=== PATIENT | female | born 1980 | race Caucasian/White ===

== ENCOUNTER 2017-08-23 15:37 | Emergency (ER) | payer OTHER ==
[~2017-08-23] VITALS: Ht 162.6 cm; Wt 118.2 kg
[~2017-08-23 15:37] MED LIST: BCPILLS PO
[2017-08-23 15:43] VITALS: TEMP 37; Ht 162.6 cm; Wt 118.2 kg
[2017-08-23] MEDS ORDERED: SODIUM CHLORIDE 0.9% 1000ML 1,000 ML IV STA (16:16)
[2017-08-23] MEDS ORDERED: ONDANSETRON INJ 2 MG/ML 2 ML VIAL IV STA (16:16)
[2017-08-23 17:13] LABS: BASO % 0.1 %; BASO ABS # 0.02 K/uL (0-0.2); COMPLETE YES; EOS % 0.6 %; IG% 0.2 %; LYMPH ABS # 4.06 K/uL (1.2-3.4); MEAN CELL VOLUME 88.6 fL (80-100); MEAN CORPUSCULAR HEMOGLOBIN 30.6 pg (25-34); MEAN CORPUSCULAR HGB CONC 34.6 g/dl (32-36); MEAN PLATELET VOLUME 10.2 fL (7.4-10.4); MONO % 4.4 %; NEUT % 69.7 %; PLATELET COUNT 257 K/uL (130-400); RED BLOOD COUNT 5.19 M/uL (4.2-5.4); WHITE BLOOD COUNT 16.22 K/uL (4.8-10.8)
[2017-08-23 17:17] LABS: URINE APPEARANCE CLOUDY (CLEAR); URINE BILIRUBIN NEG (NEG); URINE COLOR YELLOW; URINE EPITHELIAL CELL AUTO >30 /lpf (0-5); URINE NITRITE NEG (NEG); URINE SPECIFIC GRAVITY 1.028 (1.000-1.030); UROBILINOGEN NEG (NEG); ZZUR CULT IF INDIC CLEAN CATCH YES
[2017-08-23 17:22] LABS: MANUAL MICROSCOPIC REQUIRED? NO; REVIEW REQ? NO
[2017-08-23 17:32] LABS: BUN/CREATININE RATIO 14.7 (10-20); CALCIUM 9.1 mg/dl (8.5-10.1); CREATININE 1.04 mg/dl (0.60-1.20); POTASSIUM 3.2 mmol/L (3.5-5.1)
--- NOTE | 2017-08-23 17:35 | DIAGNOSTIC IMAGING REPORT ---
ABD/PELVIS NO IV OR ORAL CONT CLINICAL HISTORY: 37 years-old Female presenting with LLQ/L flank pain, N/V. TECHNIQUE: Multidetector CT of the abdomen and pelvis was performed without the use of intravenous contrast. IV contrast: None. A dose lowering technique was used consistent with the principles of ALARA (as low as reasonably achievable). COMPARISON: 07/10/2010. CT DOSE (mGy.cm): The estimated cumulative dose is 1539.02 mGy.cm. FINDINGS: Sales Operations Analyst topogram: Unremarkable. Lung bases: Minimal dependent changes likely atelectasis. Normal heart size. No pericardial or pleural effusion. Liver: Normal morphology. Borderline hepatic steatosis. Biliary: No gross biliary ductal dilatation allowing for noncontrast technique. Normal gallbladder. Pancreas: Normal noncontrast appearance. Spleen: Normal noncontrast appearance. Adrenal glands: Normal noncontrast appearance. Kidneys and ureters: Evidence of medullary nephrocalcinosis as well as bilateral nephrolithiasis. The largest calculus on the right measures 3 mm and on the left measures 5 mm. No hydronephrosis. Ureters are nondilated. Bladder: Incompletely evaluated secondary to underdistention. No evidence of bladder calculi. Pelvic organs: Normal noncontrast appearance. Bowel: Normal appendix. No bowel obstruction. Wall thickening of the gastric antrum and pylorus. No perigastric inflammatory change. The duodenum is normal-appearing allowing for the absence of oral and intravenous contrast. Peritoneal cavity: No free fluid or intraperitoneal gas. Lymph nodes: No gross lymphadenopathy allowing for noncontrast technique. Vasculature: Normal noncontrast appearance. Abdominal wall: Normal. Musculoskeletal: Normal. IMPRESSION: 1. Wall thickening of the gastric antrum and pylorus suggests gastritis. 2. 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 Medullary nephrocalcinosis can be secondary to medullary sponge kidney, hyperparathyroidism, type I renal tubular acidosis, and multiple additional etiologies. Correlate clinically. 3. Borderline hepatic steatosis Electronically signed by: Jules Bray M.D. 08/23/2017 5:33 PM Dictated Date/Time: 08/23/2017 5:25 PM
[2017-08-23] MEDS ORDERED: KETOROLAC TROMETHAMINE 30 MG/ML VIAL IV STA (19:21)
[2017-08-23] MEDS ORDERED: CEFTRIAXONE SOD INJ 1 GM ADDVIAL IV STA (19:21)
[2017-08-23] MEDS ORDERED: CIPR-255 PO (20:46)
[2017-08-23] MEDS ORDERED: ONDA4TAB10 SL (20:46)
[2017-08-23] MEDS ORDERED: OXYC1TAB3 PO (20:46)
[2017-08-23] MEDS ORDERED: ONDANSETRON HOME PACK 4MG OD TAB PO ONE (21:00)
[2017-08-23] MEDS ORDERED: OXYCODONE IR HOME PACK PO ONE (21:00)
[2017-08-23] MEDS ORDERED: CIPROFLOXACIN 500MG HOME PACK PO ONE (21:00)
[2017-08-23 21:05] VITALS: BP 198/101; PULSE 88; O2SAT 98
--- NOTE | 2017-08-24 00:38 | EMERGENCY ROOM VISIT NOTE ---
History First contact with patient: 16:05 Chief Complaint: VOMITING Stated Complaint: VOMITING, PAIN IN LT SIDE History of Present Illness The patient is a 37 year old female who presents to the Emergency Room with complaints of left-sided abdominal and flank pain since Wednesday morning. The patient reports that the pain is intermittent in nature. She reports nausea and vomiting. She has had decreased urine output. She has not been able to drink many fluids because of nausea and vomiting. She denies any pain radiating into the central or right side of the abdomen. The pain is worse when laying down. She denies any recent constipation or diarrhea. She denies any history of GI diseases, ovarian cysts or other reproductive issues. She does report a prior history of kidney stones. She denies any recent chest pain , shortness of breath or other infections. She rates her discomfort a 5 out of 10. Review of Systems HEENT: Denies dizziness, visual problems, hearing loss, tinnitus. Denies difficulty swallowing or oral lesions. PULMONARY: Denies cough, shortness of breath, sputum production or hemoptysis. CARDIOVASCULAR: Denies chest pain, palpitations, dyspnea on exertion, orthopnea or peripheral edema. GASTROINTESTINAL: See history of present illness. GENITOURINARY: Denies dysuria, frequency, urgency or nocturia. She does report decreased urine output as indicated in history of present illness. NEUROLOGIC: Denies history of epilepsy, CVA, TIA or chronic headaches. MUSCULOSKELETAL: Denies history of joint tenderness/swelling. SKIN: Denies rashes or lesions. PSYCHIATRIC: Denies history of depression or mental illness. ENDOCRINE: Denies history of diabetes or thyroid disorders. Past Medical/Surgical History Medical Problems: (1) Back pain complicating in third trimester (2) No Known Active Medical Problems (3) uterine contractions, antepartum Family History Unremarkable Social History Smoking Status: Current Every Day Smoker Alcohol Use: occasionally Marital Status: Housing Status: lives with family Occupation Status: employed Current/Historical Medications Scheduled Ciprofloxacin Hcl (Cipro), 500 MG PO BID Ondasetron Odt (Zofran Odt), 4 MG SL Q6H Scheduled PRN Oxycodone Ir (Roxicodone Ir), 1-2 TAB PO Q4H PRN for Pain Physical Exam Vital Signs Date Time Temp Pulse Resp B/P (MAP) Pulse Ox O2 Delivery O2 Flow Rate FiO2 11/27/17 21:05 88 198/101 98 11/27/17 20:10 56 208/98 95 Room Air 08/23/17 15:43 37.0 79 18 213/100 98 Room Air Physical Exam CONSTITUTIONAL: Obese female, alert and oriented X 3 with positive affect. She appears in mild to moderate discomfort. HEENT: Normocephalic, atraumatic. Pupils equal, round and reactive. Ears and nares are clear. No scar icterus or conjunctival injection. OROPHARYNX: Mucous membranes are dry. No tonsillar hypertrophy or posterior pharyngeal erythema. NECK: Full active range of motion without discomfort. LYMPHATICS: No adenopathy noted. RESPIRATORY: Clear to auscultation bilaterally with no wheezing, crackles, rhonchi or stridor. CARDIOVASCULAR: Regular rate and rhythm with no murmurs, rubs or gallops. GASTROINTESTINAL: Bowel sounds present in all quadrants. Patient has generalized mild left-sided abdominal tenderness to palpation without rigidity, guarding or rebound. No obvious hepatosplenomegaly. Negative CVA tenderness. No abdominal rigidity, guarding or rebound. MUSCULOSKELETAL: Full range of motion of all joints without discomfort. INTEGUMENTARY: No rash or other significant dermatologic conditions noted. HEMATOLOGIC: No ecchymosis or petechiae noted. NEUROLOGIC: No focal neurologic deficits noted. Medical Decision & Procedures ER Provider Diagnostic Interpretation: Noncontrast CT of the abdomen and pelvis shows the following: ABD/PELVIS NO IV OR ORAL CONT CLINICAL HISTORY: 37 years-old Female presenting with LLQ/L flank pain, N/V. TECHNIQUE: Multidetector CT of the abdomen and pelvis was performed without the use of intravenous contrast. IV contrast: None. A dose lowering technique was used consistent with the principles of ALARA (as low as reasonably achievable). COMPARISON: 07/10/2010. CT DOSE (mGy.cm): The estimated cumulative dose is 1539.02 mGy.cm. FINDINGS: [employer] Field Operation topogram: Unremarkable. Lung bases: Minimal dependent changes likely atelectasis. Normal heart size. No pericardial or pleural effusion. Liver: Normal morphology. Borderline hepatic steatosis. Biliary: No gross biliary ductal dilatation allowing for noncontrast technique. Normal gallbladder. Pancreas: Normal noncontrast appearance. Spleen: Normal noncontrast appearance. Adrenal glands: Normal noncontrast appearance. Kidneys and ureters: Evidence of medullary nephrocalcinosis as well as bilateral nephrolithiasis. The largest calculus on the right measures 3 mm and on the left measures 5 mm. No hydronephrosis. Ureters are nondilated. Bladder: Incompletely evaluated secondary to underdistention. No evidence of bladder calculi. Pelvic organs: Normal noncontrast appearance. Bowel: Normal appendix. No bowel obstruction. Wall thickening of the gastric antrum and pylorus. No perigastric inflammatory change. The duodenum is normal-appearing allowing for the absence of oral and intravenous contrast. Peritoneal cavity: No free fluid or intraperitoneal gas. Lymph nodes: No gross lymphadenopathy allowing for noncontrast technique. Vasculature: Normal noncontrast appearance. Abdominal wall: Normal. Musculoskeletal: Normal. IMPRESSION: 1. Wall thickening of the gastric antrum and pylorus suggests gastritis. 2. 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 Medullary nephrocalcinosis can be secondary to medullary sponge kidney, hyperparathyroidism, type I renal tubular acidosis, and multiple additional etiologies. Correlate clinically. 3. Borderline hepatic steatosis Laboratory Results 08/23/17 16:50 Red Blood Count 5.19, Mean Corpuscular Volume 88.6, Mean Corpuscular Hemoglobin 30.6, Mean Corpuscular Hemoglobin Concent 34.6, Mean Platelet Volume 10.2, Neutrophils (%) (Auto) 69.7, Lymphocytes (%) (Auto) 25.0, Monocytes (%) (Auto) 4.4, Eosinophils (%) (Auto) 0.6, Basophils (%) (Auto) 0.1, Neutrophils # (Auto) 11.30, Lymphocytes # (Auto) 4.06, Monocytes # (Auto) 0.71, Eosinophils # (Auto) 0.09, Basophils # (Auto) 0.02 08/23/17 16:50 Test 08/23/17 16:50 08/23/17 17:00 White Blood Count 16.22 K/uL (4.8-10.8) Red Blood Count 5.19 M/uL (4.2-5.4) Hemoglobin 15.9 g/dL (12.0-16.0) Hematocrit 46.0 % (37-47) Mean Corpuscular Volume 88.6 fL (80-100) Mean Corpuscular Hemoglobin 30.6 pg (25-34) Mean Corpuscular Hemoglobin Concent 34.6 g/dl (32-36) Platelet Count 257 K/uL (130-400) Mean Platelet Volume 10.2 fL (7.4-10.4) Neutrophils (%) (Auto) 69.7 % Lymphocytes (%) (Auto) 25.0 % Monocytes (%) (Auto) 4.4 % Eosinophils (%) (Auto) 0.6 % Basophils (%) (Auto) 0.1 % Neutrophils # (Auto) 11.30 K/uL (1.4-6.5) Lymphocytes # (Auto) 4.06 K/uL (1.2-3.4) Monocytes # (Auto) 0.71 K/uL (0.11-0.59) Eosinophils # (Auto) 0.09 K/uL (0-0.5) Basophils # (Auto) 0.02 K/uL (0-0.2) RDW Standard Deviation 42.7 fL (36.4-46.3) RDW Coefficient of Variation 13.1 % (11.5-14.5) Immature Granulocyte % (Auto) 0.2 % Immature Granulocyte # (Auto) 0.04 K/uL (0.00-0.02) Anion Gap 8.0 mmol/L (3-11) Est Creatinine Clear Calc Drug Dose 95.5 ml/min Estimated GFR () 80.6 Estimated GFR (Non- 69.6 BUN/Creatinine Ratio 14.7 (10-20) Calcium Level 9.1 mg/dl (8.5-10.1) Total Bilirubin 0.4 mg/dl (0.2-1) Aspartate Amino Transf (AST/SGOT) 12 U/L (15-37) Alanine Aminotransferase (ALT/SGPT) 21 U/L (12-78) Alkaline Phosphatase 86 U/L (45-117) Total Protein 7.8 gm/dl (6.4-8.2) Albumin 3.8 gm/dl (3.4-5.0) Globulin 4.0 gm/dl (2.5-4.0) Albumin/Globulin Ratio 1.0 (0.9-2) Lipase 182 U/L (73-393) Urine Color YELLOW Urine Appearance CLOUDY (CLEAR) Urine pH 6.0 (4.5-7.5) Urine Specific [place] 1.028 (1.000-1.030) Urine Protein 2+ (NEG) Urine Glucose (UA) NEG (NEG) Urine Ketones 1+ (NEG) Urine Occult Blood 2+ (NEG) Urine Nitrite NEG (NEG) Urine Bilirubin NEG (NEG) Urine Urobilinogen NEG (NEG) Urine Leukocyte Esterase MODERATE (NEG) Urine WBC (Auto) >30 /hpf (0-5) Urine RBC (Auto) >30 /hpf (0-4) Urine Hyaline Casts (Auto) 10-30 /lpf (0-5) Urine Epithelial Cells (Auto) >30 /lpf (0-5) Urine Bacteria (Auto) 2+ (NEG) Urine Test NEG (NEG) The above labs were reviewed. The patient does have a moderate leukocytosis. Potassium is 3.2. LFTs and lipase are grossly normal. Urinalysis is contaminated, but suggestive of an infection. Urine is negative. Medications Administered Medications (Trade) Dose Ordered Sig/Valentin Route Start Time Stop Time Status Last Admin Dose Admin Sodium Chloride 1,000 ml @ 999 mls/hr Q1H1M STAT IV 08/23/17 16:16 08/23/17 17:16 DC 08/23/17 16:52 999 MLS/HR Ondansetron HCl (Zofran Inj) 4 mg NOW STAT IV 08/23/17 16:16 08/23/17 16:19 DC 08/23/17 16:52 4 MG Ketorolac Tromethamine (Toradol Inj) 30 mg NOW STAT IV 08/23/17 19:21 08/23/17 19:22 DC 08/23/17 20:00 30 MG Ceftriaxone Sodium (Rocephin Inj) 1 gm NOW STAT IV 08/23/17 19:21 08/23/17 19:22 DC 08/23/17 20:04 1 GM Procedure 1. IV hydration: The patient was hydrated with a liter of normal saline 2. IV medications: The patient was initially administered Zofran 4 mg IVP. She was subsequently administered Toradol 30 mg IVP and Rocephin 1 g IV infusion. ED Course Patient history and physical exam were performed. Nurse's notes were reviewed. Vital signs were reviewed, showing an elevated blood pressure of 213/100. The patient is otherwise afebrile and not tachycardic. IV access was established, and labs were drawn. The patient was hydrated with normal saline, and administered IV Zofran for nausea. She refused any parenteral analgesics. Review of labs shows a moderate leukocytosis and mild hypokalemia. Urinalysis is suggestive of infection, but was contaminated. Urine cultures are pending. Urine is negative. Noncontrast CT of the abdomen and pelvis shows potentially gastritis and medullary nephrocalcinosis with nonobstructing bilateral nephrolithiasis. Findings were discussed with the patient. She was administered IV Toradol and Rocephin. She was instructed to follow-up closely with her PCP within the next 2-3 days, returning to the emergency department for any significant worsening symptoms. She was provided a prescription for Cipro 500 mg twice a day 10 days , along with a prescription for oxycodone if needed for worse pain, and Zofran ODT if needed for nausea. She was provided home packs for all these medications as well into the pharmacy opens in the morning. The patient was happy with plan of care, voiced understanding of all discharge instructions, and rated her pain a 3 out of 10 at the conclusion of my exam. The patient was advised that her blood pressures were elevated in the emergency department, and encouraged to discuss her blood pressure readings with her PCP. Medical Decision Patient presents to the emergency department with complaint of left flank and abdominal pain. The patient does have a moderate leukocytosis. Her CT scan does not show any acute bowel etiology. She does have medullary nephrocalcinosis with nonobstructing bilateral nephrolithiasis. Although renal colic is possible, urinalysis is somewhat suggestive of infection. She currently does not have a CVA tenderness to suggest pyelonephritis, however I do feel that the patient warrants antibiotic coverage. She will likely require further urology/nephrology workup. At this point, I do not feel that further hospitalist evaluation is needed. Clinical exam is not consistent with an acute diverticulitis, mesenteric adenitis, ischemic gut, appendicitis or other musculoskeletal etiology. Laboratory studies are not suggestive of pancreatitis , hepatitis or cholecystitis. [place] Drug Monitoring Program Search Results: patient reviewed within database, no issues identified Medication Reconcilliation Current Medication List: was personally reviewed by me Blood Pressure Screening Patient's blood pressure: Elevated blood pressure Blood pressure disposition: Referred to PCP Impression Primary Impression: Acute abdominal pain in left flank Additional Impression: Elevated blood pressure reading Departure Information Prescriptions Ondasetron Odt (ZOFRAN ODT) 4 Mg Tab 4 MG SL Q6H for Nausea, #10 TAB Prov: Rick Barragan PA 08/23/17 Oxycodone Ir (Roxicodone Ir) 5 Mg Tab 1-2 TAB PO Q4H Y for Pain, #15 TAB For Initial Treatment Prov: Rick Barragan PA 08/23/17 Ciprofloxacin Hcl (CIPRO) 500 Mg Tab 500 MG PO BID for 10 Days, #20 TAB Prov: Rick Barragan PA 08/23/17 Referrals No Doctor, Assigned (PCP) Patient Instructions [facility] Problem Qualifiers
== END 2017-08-23 21:05 | disposition home or self-care (01) ==
LOC: C.EDB 15:37
DX: R10.9 Unspecified abdominal pain (principal); R03.0 Elevated blood-pressure reading, without diagnosis of hypertension; N20.0 Calculus of kidney; N25.89 Other disorders resulting from impaired renal tubular function; E88.89 Other specified metabolic disorders; F17.200 Nicotine dependence, unspecified, uncomplicated